=== PATIENT | male | born 1975 | race Caucasian/White ===

== ENCOUNTER 2022-11-22 15:02 | Inpatient (IN) | payer OTHER ==
[2022-11-22 15:29] VITALS: BMI 22.1
[2022-11-22] MEDS ORDERED: BISMUTH SUBSALICYLATE 524 MG/30 ML PO PRN (18:15)
[2022-11-22] MEDS ORDERED: NALOXONE HCL (KLOXXADO) 8 MG SPRAY NS PRN (18:15)
[2022-11-22] MEDS ORDERED: cloNIDine HCL 0.1 MG TABLET PO PRN (18:15)
[2022-11-22] MEDS ORDERED: IBUPROFEN 400 MG TABLET (FP) PO PRN (18:15)
[2022-11-22] MEDS ORDERED: ONDANSETRON *ODT* 4 MG TABLET SL PRN (18:15)
[2022-11-22] MEDS ORDERED: MAGNESIUM HYDROX 2400MG/30ML ORAL SUSPENSION 30 ML CUP PO PRN (18:15)
[2022-11-22] MEDS ORDERED: BENZOCAINE/MENTHOL (CHLORASEPTIC ) LOZENGE MM PRN (18:15)
[2022-11-22] MEDS ORDERED: POLYETHYLENE GLYCOL (HEALTHYLAX) 3350 17 GM PACKET PO PRN (18:15)
[2022-11-22] MEDS ORDERED: LOPERAMIDE HCL 2 MG CAPSULE PO PRN (18:15)
[2022-11-22] MEDS ORDERED: MAG HYDROX/AL HYDROX/SIMETH 30 ML UNIT-DOSE CUP PO PRN (18:15)
[2022-11-22] MEDS ORDERED: DICYCLOMINE HCL 10 MG CAPSULE PO PRN (18:15)
[2022-11-22] MEDS ORDERED: diazePAM 5 MG TABLET PO PRN (18:15)
[2022-11-22] MEDS ORDERED: ACETAMINOPHEN 325 MG TABLET (FP) PO PRN ×2 (18:15)
[2022-11-22] MEDS ORDERED: methaDONE HCL 10 MG TABLET (FOR DETOX USE ONLY) PO ONE (19:00)
[2022-11-22] MEDS: THIAMINE HCL 100 MG TABLET (FP) PO SCH (22:33)
[2022-11-22] MEDS: MELATONIN 5 MG TABLETS PO SCH (22:33)
[2022-11-22] MEDS: diazePAM 5 MG TABLET PO SCH (22:34)
[2022-11-23] MEDS: diazePAM 5 MG TABLET PO SCH ×4 (05:41→23:06)
[2022-11-23] MEDS: PRENATAL VITAMINS W/ FOLIC ACID TABLET (FP) PO SCH (10:41)
[2022-11-23 10:59] LABS: CALCIUM 8.6 mg/dL (8.5-10.1)
[2022-11-23 11:00] LABS: ALBUMIN 3.3 g/dl (3.4-5.0); BLOOD UREA NITROGEN 18.6 mg/dL (7-18)
[2022-11-23 11:03] LABS: CREATININE 0.9 mg/dL (0.55-1.3)
[2022-11-23 11:05] LABS: BILIRUBIN,TOTAL 0.5 mg/dL (0.2-1); TOT PROT 5.6 g/dl (6.4-8.2)
[2022-11-23 11:07] LABS: HEMATOCRIT 37.4 % (35.4-49); MCH 30.3 pg (25.7-33.7); MCHC 34.7 g/dl (32.0-35.9); MEAN CELL VOLUME 87.2 fl (80-96); MEAN PLT VOLUME 8.7 fl (7.5-11.1); PLATELET COUNT 205 10^3/uL (134-434); RBC 4.29 M/mm3 (4.00-5.60); RDW 12.8 % (11.9-15.9); WHITE BLOOD COUNT 4.2 K/mm3 (4.0-10.0)
[2022-11-23] MEDS: NICOTINE 10 MG CARTRIDGE (INHALER) IH PRN ×2 (17:11→22:13)
[2022-11-23] MEDS: THIAMINE HCL 100 MG TABLET (FP) PO SCH (22:13)
[2022-11-23] MEDS: MELATONIN 5 MG TABLETS PO SCH (22:13)
[2022-11-24] MEDS: diazePAM 5 MG TABLET PO SCH ×3 (05:54→22:47)
[2022-11-24] MEDS ORDERED: methaDONE HCL 10 MG TABLET (FOR DETOX USE ONLY) PO ONE (10:00)
[2022-11-24] MEDS: PRENATAL VITAMINS W/ FOLIC ACID TABLET (FP) PO SCH (10:21)
[2022-11-24] MEDS: NICOTINE 10 MG CARTRIDGE (INHALER) IH PRN ×4 (10:24→21:05)
[2022-11-24] MEDS ORDERED: diazePAM 5 MG TABLET PO PRN (17:49)
[2022-11-24] MEDS: THIAMINE HCL 100 MG TABLET (FP) PO SCH (22:47)
[2022-11-24] MEDS: MELATONIN 5 MG TABLETS PO SCH (22:47)
[2022-11-25] MEDS: diazePAM 5 MG TABLET PO SCH ×2 (05:45→18:08)
[2022-11-25] MEDS: PRENATAL VITAMINS W/ FOLIC ACID TABLET (FP) PO SCH (10:20)
[2022-11-25] MEDS: NICOTINE 10 MG CARTRIDGE (INHALER) IH PRN ×2 (10:23→15:10)
[2022-11-25] MEDS: METHOCARBAMOL 500 MG TABLET PO PRN ×2 (10:23→18:07)
[2022-11-25] MEDS: hydrOXYzine PAMOATE 25 MG CAPSULE (FP) PO PRN (15:10)
[2022-11-25] MEDS: THIAMINE HCL 100 MG TABLET (FP) PO SCH (23:00)
[2022-11-25] MEDS: MELATONIN 5 MG TABLETS PO SCH (23:00)
[2022-11-26] MEDS ORDERED: diazePAM 5 MG TABLET PO ONE (06:00)
[2022-11-26] MEDS: NICOTINE 10 MG CARTRIDGE (INHALER) IH PRN ×2 (09:31→14:17)
[2022-11-26] MEDS ORDERED: methaDONE HCL 10 MG TABLET (FOR DETOX USE ONLY) PO ONE (10:00)
[2022-11-26] MEDS: PRENATAL VITAMINS W/ FOLIC ACID TABLET (FP) PO SCH (10:09)
[2022-11-26] MEDS: METHOCARBAMOL 500 MG TABLET PO PRN ×2 (10:12→22:36)
[2022-11-26] MEDS: IBUPROFEN 600 MG TABLET (FP) PO PRN ×2 (10:12→22:36)
[2022-11-26] MEDS: MELATONIN 5 MG TABLETS PO SCH (22:35)
[2022-11-26] MEDS: THIAMINE HCL 100 MG TABLET (FP) PO SCH (22:36)
[2022-11-26] MEDS: hydrOXYzine PAMOATE 25 MG CAPSULE (FP) PO PRN (22:36)
[2022-11-27] MEDS: NICOTINE 10 MG CARTRIDGE (INHALER) IH PRN (08:59)
[2022-11-27 09:40] VITALS: BP 91/56; PULSE 62; RESP 17; TEMP 97.8
== END 2022-11-27 09:11 | disposition home or self-care (01) | DRG 897 ==
LOC: YASAS 15:02 → Y3N 18:26
PROVIDERS: ADMIT Allergy & Immunology; ATTEND Surgery
PROC: HZ2ZZZZ Detoxification Services for Substance Abuse Treatment (ICD-10-PCS; principal; 2022-11-22)
DX: F10.230 Alcohol dependence with withdrawal, uncomplicated (principal); F11.20 Opioid dependence, uncomplicated; F14.20 Cocaine dependence, uncomplicated; E46 Unspecified protein-calorie malnutrition; F17.210 Nicotine dependence, cigarettes, uncomplicated; F31.9 Bipolar disorder, unspecified; F43.10 Post-traumatic stress disorder, unspecified; F41.9 Anxiety disorder, unspecified; M54.50 Low back pain, unspecified; G89.29 Other chronic pain; R73.9 Hyperglycemia, unspecified; Z91.51 Personal history of suicidal behavior
CPT/HCPCS: 36415; 80053; 82947; 83036; 85027; 86780; 87811; C9803-CS; U0003; U0005